=== PATIENT | male | born 2000 | race Caucasian/White ===

== ENCOUNTER 2024-05-24 09:17 | Outpatient (AMB) | payer OTHER, SELFPAY ==
[2024-05-24 09:34] VITALS: BP 116/64; PULSE 60; RESP 16; TEMP 37.3; O2SAT 98; BMI 28.3
--- NOTE | 2024-05-24 09:34 | MHC.PC.OV ---
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 Transferring care from [facility]. Medical records have been requested and have not received. Rn Orthopaedic Required: No Accompanied by: Father Allergies No Known Allergies Allergy (Verified 05/24/24 09:51) Medication List - Last Reconciled 05/24/24 by CLAUDY Santos buspirone mg PO clonidine HCl mg PO divalproex ER 500 mg PO BEDTIME hydroxyzine pamoate mg PO lithium carbonate mg PO loratadine mg PO DAILY melatonin 5 mg PO BEDTIME Tobacco use date assessed: 05/24/24 Dental Screening Dental Screen Date: 05/24/24 Did you have a dental visit in the last 12 months?: No Did you have a dental problem in the last 6 months where you did not have access to dental care?: No Was dental information given to patient?: Patient has dentist 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 HPI Details Patient is a 24-year-old male presenting to establish care, accompanied by father 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 PCP: Security Operations Specialist Last visit: reports a while ago Last PE: a while ago Specialist: reports that he used to see regional business development manager for transitioning-not anymore OBGYN:n/a Past medical history: Autism, schizophrenia, anxiety, reports seeing a psychiatrist ( Overly mateo arredondo) sees a therapist once a week Medications: Family HX: father htn, bipolar Problem: Denies chest pain, shortness of breath, heart palpitation, or dizziness Reports intermittent gas pain in the umbilical area (short-lived) Present denies any urinary symptoms On exam: Bilateral ear cerumen impaction present. Debrox ear drops recommended, we will reassess on next visit. [facility] Medical History (Updated 05/27/24 @ 16:37 by CLAUDY Santos) Anxiety Schizophrenia Autism Family History (Updated 05/27/24 @ 16:13 by CLAUDY Santos) Father Mental health problem Mother No problems noted. Father Bipolar 2 disorder HTN (hypertension) Social History Household Members: Family Both parents involved: No Housing: Condominium Alcohol intake: never Patient Tobacco Use Status: Never used Tobacco e-Cigarette/Vaping Use: Never Used Substance Use Type: Marijuana service: No Cognitive needs: Yes Hearing needs: No Vision needs: Yes Questionnaire PHQ-9 Over the last 2 weeks, how often have you been bothered by any of the following problems? 1. Little interest or pleasure in doing things: not at all 2. Feeling down, depressed, or hopeless: several days 3. Trouble falling or staying asleep, or sleeping too much: more than half the days 4. Feeling tired or having little energy: several days 5. Poor appetite or overeating: nearly every day 6. Feeling bad about yourself - or that you are a failure or have let yourself or your family down: not at all 7. Trouble concentrating on things, such as reading the newspaper or watching television: several days 8. Moving or speaking so slowly that other people could have noticed. Or the opposite - being so fidgety or restless that you have been moving around a lot more than usual: nearly every day 9. Thoughts that you would be better off or of hurting yourself in some way: not at all Total score: 11 Depression Screening Interpretation: Positive Depression Screening Done: Yes 23949 - PHQ-9 Billing: Yes Source: Developed by Drs. Roque Estrella, Mayi Moseley, Homer Barba and colleagues, with an educational maranda from [employer]. Thrive Questionnaire Date Thrive assessed: 05/22/24 I am a: Patient What is your living situation today?: I have a steady place to live Within the past 12 months, did the food you bought not last and you didn't have the money to get more?: I choose not to answer this question Within the past 12 months, did you worry whether your food would run out before you got money to buy more?: Never true Do you have trouble paying for medicines?: No Do you have trouble getting transportation to medical appointments?: No Do you have trouble paying your heating and electricity bill?: I choose not to answer this question Do you have trouble taking care of your child, family member or friend?: I choose not to answer this question Do you have trouble with day-to-day activities such as bathing, preparing meals, shopping, managing finances, etc.?: No Are you currently unemployed and looking for a job?: No Are you interested in more education?: No Please select the resources that you would like help with: None Currently or been in a relationship where the following occur: No concerns reported THRIVE Score: 0 AUDIT C Alcohol Use Questionnaire (AUDIT-C) 1. How often do you have a drink containing alcohol?: Never 2. How many drinks containing alcohol do you have on a typical day when you are drinking?: 1 or 2 3. How often do you have six or more drinks on one occasion?: Never Total Score: 0 MARIA TERESA-7 AMB Questionnaire MARIA TERESA-7 Date MARIA TERESA - 7 assessed: 05/24/24 Feeling nervous, anxious, or on edge: 0 = Not at all Not being able to stop or control worryin = Not at all Worrying too much about different things: 0 = Not at all Trouble relaxin = More than half the days Being so restless that it is hard to sit still: 2 = More than half the days Becoming easily annoyed or irritable: 0 = Not at all Feeling afraid as if something awful might happen: 0 = Not at all Total MARIA TERESA-7 score (0-4 normal; 5-9 mild; 10-14 moderate; 15-21 severe): 4 Source: Developed by Drs. Roque Estrella, Mayi Moseley, Homer Barba and colleagues, with an educational maranda from [employer]. MARIA TERESA-7 Assessment Billing MARIA TERESA-7 Assessment Tool: MARIA TERESA-7 Assessment 84383 Review of Systems Const Details: Denies chills, Denies fatigue, Denies fever(s), Denies headache(s) and Denies weakness HEENT Denies change in vision, Denies dizziness, Denies headache(s), Denies hearing loss, Denies nasal congestion, Denies sinus pain, Denies sinus pressure and Denies sore throat Card Denies chest pain, Denies lightheadedness, Denies dyspnea and Denies other (palpitations) Resp Denies cough, Denies dyspnea and Denies wheezing GI The reports gas like pain in the epigastric region intermittently (short-lived) Denies melena, Denies hematochezia, Denies change in bowel habits, Denies dyspepsia and Denies nausea Denies hematuria and Denies dysuria Musc Denies abnormal gait, Denies myalgias, Denies arthralgias, Denies numbness and Denies tingling Skin/Breast Denies rash, Denies unusual bruising and Denies wounds Neuro Denies abnormal gait, Denies dizziness, Denies headache(s), Denies memory loss, Denies numbness, Denies Sensory deficit (Neuro), Denies tingling and Denies weakness Psych reports anxiety, Denies depression and Denies memory loss Endo Denies cold intolerance, Denies fatigue, Denies heat intolerance, Denies polydipsia and Denies polyuria Gary/Lymph Denies easy bleeding and Denies easy bruising Aller/Immun Denies wheezing Physical exam (Primary Care) Vital Signs: Last Vital Signs Temp 99.1 F 05/24/24 09:34 Pulse 60 05/24/24 09:34 Resp 16 05/24/24 09:34 BP 116/64 05/24/24 09:34 Pulse Ox 98 05/24/24 09:34 Oxygen Delivery Method Room Air 05/24/24 09:34 BMI result Body Mass Index 28.3 Tobacco/Smoking Status: Tobacco use Status Tobacco use date assessed 05/24/24 05/24/24 09:50 Patient Tobacco Use Status Never used Tobacco 05/24/24 09:50 e-Cigarette/Vaping Use Never Used 05/24/24 09:50 PHQ-9: PHQ-9 Score PHQ-9: Total score 11 05/24/24 14:22 Depression Screening Interpretation: Positive Thrive Assessment: Date of Thrive Assessment Date Thrive assessed 05/22/24 05/24/24 09:39 Currently or been in a relationship where the following occur: No concerns reported Const Other: General: no acute distress, well developed, alert and awake Nutritional Appearance: well nourished Orientation/consciousness: patient oriented x3 HENMT Head: Yes normocephalic and Yes atraumatic Ears: hearing grossly normal bilaterally and TM's normal bilaterally Detail:Bilateral ear impaction present with light brown cerumen General nose exam: Normal external nose present and Normal nares present Mouth: Normal oral and palatal mucosa present and moist mucous membranes Teeth and gingiva: dentition normal Throat: Yes oropharynx normal Eyes Pupils: Equal, round and reactive pupils present and Pupil accommodation reflex normal EOM: EOMs intact bilaterally Neck Neck: Yes normal visual inspection, Yes no lymphadenopathy and Yes trachea midline Thyroid: Thyroid normal Carotids: no bruits Lymphatic: no lymphadenopathy noted Chest Chest palpation & inspection: normal inspection of the chest Resp Effort & Inspection: normal respiratory effort Auscultation: clear to auscultation bilaterally Cardio Rate: regular rate Rhythm: regular rhythm Heart sounds: S1 normal heart sound present, S2 normal heart sound present, no gallops, no murmurs and no rubs GI Palpation (GI): Abdomen is soft and nontender Auscultation: normal bowel sounds General: Yes no CVA tenderness Back/Spine/Pelvis Back: no CVA tenderness Skin General: warm and dry. Normal skin color. Normal skin turgor Lesions: no lesions Wounds: no wounds Nails: normal Neuro General: patient oriented x3, gait normal Cranial nerves: Yes Equal, round and reactive pupils present Cognition (Neuro): answer questions intermittently, but sometimes does not respond to question or slow to respond Gait exam (Neuro): Normal gait present Motor exam (neuro): 5/5 motor strength present throughout Sensory Exam: No Sensory deficit (Neuro) Extrem General: Yes normal to inspection, No edema and No calf tenderness Psych Appearance: grossly normal Affect: normal affect Attitude: cooperative Thought process: Normal thought process present Coding Level of Care Code New Pt Level 4 (33754) Diagnoses Autism F84.0 Schizophrenia, unspecified type F20.9 Schizophrenia type: unspecified Anxiety F41.9 Bilateral impacted cerumen H61.23 Laterality: bilateral Additional Codes MARIA TERESA-7 Assessment Billing - MARIA TERESA-7 Assessment Tool: MARIA TERESA-7 Assessment 28353 ([id number]) PHQ-9 - 54076 - PHQ-9 Billing: Yes ([id number]) Time Spent (min) 39 Assessment & Plan Assessment & Plan (1) Autism: Code(s): F84.0 - Autistic disorder Category: Medical Plan: Reports-unclear severity. The patient is slightly withdrawn and is answering questions on and off. His father intermittently responded for him. (2) Schizophrenia: Code(s): F20.9 - Schizophrenia, unspecified Category: Medical Qualifiers: Schizophrenia type: unspecified Qualified Code(s): F20.9 - Schizophrenia, unspecified Plan: He reports history and that he is seeing a psychiatrist ( Scott at [facility]); he is also seeing a therapist once a week through [facility] Reports currently being on Divalproex ER 500 mg at bedtime, lithium carbonate (3) Anxiety: Code(s): F41.9 - Anxiety disorder, unspecified Category: Medical Plan: Reports seeing a therapist weekly Reports that he is currently on buspirone 15 mg, clonidine 0.1 mg, and hydroxyzine pamoate 25 mg Denies si/hi follow up with psychiatry as scheduled (4) Impacted cerumen, unspecified ear: Code(s): H61.20 - Impacted cerumen, unspecified ear Category: Medical Qualifiers: Laterality: bilateral Qualified Code(s): H61.23 - Impacted cerumen, bilateral Plan: Bilateral ear impaction, recommended debrox ear drop with re-assess on follow up appt Orders: Orders Complete Blood Count Auto Diff 05/24/24 Z00.00 - Encounter for general adult medical examination without abnormal findings Vitamin D 25-OH Total 05/24/24 Z00.00 - Encounter for general adult medical examination without abnormal findings TSH reflex Free T4 05/24/24 Z00.00 - Encounter for general adult medical examination without abnormal findings UA CC w/rflx Micro + Cult 05/24/24 Z00.00 - Encounter for general adult medical examination without abnormal findings Glucose Fasting 05/24/24 Z00.00 - Encounter for general adult medical examination without abnormal findings Comprehensive Brule. Panel Fast 05/24/24 Z00.00 - Encounter for general adult medical examination without abnormal findings Lipid Panel 05/24/24 Z00.00 - Encounter for general adult medical examination without abnormal findings
--- OUTSIDE RECORDS SUMMARY | 2024-05-24 10:20 | XMS_ITS | Clinical Summary ---
Author Organization [facility] Address [address] [place] [id number] Phone Care Team Providers Care Chronometer Assembler Name Role Phone Unavailable Primary Care Provider Unavailabl e Allergies Active Allergy Reactions Criticality Noted Date Comments Risperidone Hives 10/10/2018 Medications divalproex (DEPAKOTE) 250 MG EC tablet Take by mouth. 09/19/2013 Active divalproex 250 MG 24 hr tablet 11 09/08/2018 Act honorio divalproex 500 MG 24 hr tablet 11 09/08/2018 Act honorio melatonin tablet 11 09/08/2018 Ac tive QUEtiapine (SEROQUEL) 50 MG tablet Take by mouth. 11/08/2014 Active QUEtiapine 100 MG tablet 11 09/08/2018 Active guanFACINE HCl ER (INTUNIV) 2 MG tablet sustained-releas e 24 hour Take by mouth. 09/19/2013 Active guanFACINE 2 MG tablet 11 09/08/2018 Active Active Problems Problem Noted Date Diagnosed Date ADHD (attention deficit hyperactivity disorder) Overview (10/10/2018): Dr. Chin prescribes medications. Assessment & Plan (12/13/2019 11:06 AM EDT): Dr. Chin prescribes meds - encouraged to continue follow up as directed with Dr. Chin. Autism Overview (10/10/2018): Dr. Chin prescribes medications. Mood disorder Overview (10/10/2018): Dr. Chin prescribes medications. Immunizations Immunization Administration Dates Next Due DTaP 04/11/2007, 4,2002, 003,2002 Hep A, ped/adol 12/13/2019,10/10/2018 Hep B, ped/adol 2002,2002,2002 Hib (HbOC) 08/09/2003, 3,2002, 003 IPV 04/11/2007, 4,2002, 003 Influenza Split 02/09/2012, 5,01/08/2004, 003 MMR 03/28/2007,08/09/2003 Meningococcal B Trumenba 12/13/2019 Meningococcal Conj (Menactra) MCV4P 10/10/2018,0 11/08/2014 Pneumococcal Conjugate 04/03/2003,2002,2002, 003 Tdap 11/08/2014 Varicella 03/28/2007,04/03/2003 Family History Relation Name Status Comments Father Alive Father: Alive a nd well Mother Alive Mother: Bipolar disorder Social History Tobacco Use Types Packs/Day Years Used Date Smoking Tobacco: Never Comments:Tried once Alcohol Use Standard Drinks/Week Comments Yes 0 (1 standard drink = 0.6 oz pur e alcohol) just once per patient. Hunger/Food Answer Date Recorded In the last 12 months, did y ou or your family ever eat less than you felt you should because there wasn't enough money for food? No 12/13/2019 Stable Housing Answer Date Recorded Are you worried that in the next 2 months you may not have stable housing? No 12/13/2019 Transportation Concerns Answer Date Rec orded In the last 12 months, have you or your family ever had to go without healthcare because you didn't have a way to get there? No 12/13/2019 Hazards in Home Answer Date Recorded Think about the place you li ve. Do you have problems with any of the following? Pests (mice or roaches), mold, no/not working smoke detectors, water leaks, no window guards. No 2019 Financing Utilities Answer Date Recorde d In the last 12 months, has t he electric, gas, oil, or water company threatened to shut off your services in your home? No 12/13/2019 Safety at Home Answer Date Recorded Are you or your family worried about feeling saf e in your home? No 12/13/2019 Outside Support Answer Date Recorded Do you feel that you need mo re support from other people or programs to help you care for yourself or your family? No 12/13/2019 Understanding Health Concerns Answer Da te Recorded Do you need help understandi ng your or your child's healthcare needs (diagnosis, medications, plan, etc.)? No 12/13/2019 Financing Health Concerns Answer Date R ecorded In the last 12 months, was t here a time when your child needed to see a doctor or get medications or supplies but could not because of cost? No 12/13/2019 Missing School or Work Answer Date Oc rded Did you or your child miss s chool or work because of a health problem that could have been avoided? No 12/13/2019 Sex and Gender Information Value Date Recorded Sex Assigned at Not on file Legal Sex Male 4:58 PM EDT Gender Identity Not on file Sexual Orientation Not on file Last Filed Vital Signs Vital Sign Reading Time Taken Comments Blood Pressure 120/76 12/13/2019 10:45 AM EDT Pulse 86 12/13/2019 10:45 AM EDT Temperature 36.8 ??C (98.3 ??F) 12/13/2019 10:45 AM E DT Respiratory Rate - - Oxygen Saturation 98% 12/13/2019 10:45 AM EDT Inhaled Oxygen Concentration - - Weight 72.3 kg (159 lb 6.3 oz) 12/13/2019 10:45 AM EDT Height 162 cm (5' 3.78 ) 12/13/2019 10:45 AM EDT Body Mass Index 27.55 12/13/2019 10:45 AM EDT Plan of Treatment Health Maintenance Due Date Last Done Comments Glucose/HbA1C 10/10/2018 LDL-C/Cholesterol 10/10/2018 Men B Vaccine (2 of 2 - Trum enba SCDM 2-dose series) 06/11/2020 12/13/2019 Influenza Vaccines (#1) 2023 01/22/20, 12/31/2019, 02/09/2012, Additional history exists COVID-19 Vaccine ( - 2023-2 5 season) 2023 DTaP,Tdap,and Td Vaccines (7 - Td or Tdap) 11/08/2024 11/08/2014, 04/11/2007, 11/04/2003, Additional history exists Hepatitis B Vaccines Completed 2002, 2002, 2002 Pneumococcal Vaccine Completed 04/03/2003, 2002, 2002, Additional history exists HIB Vaccines Completed 08/09/2003, 07/20, 2002, Additional history exists MMR Vaccines Completed 03/28/2007, 08/09/2003 Varicella Vaccines Completed 03/28/2007, 04/03/2003 IPV Vaccines Completed 04/11/2007, 10/19, 08/09/2003, Additional history exists HPV Vaccines Completed 09/14/2017, 06/29/2016 Meningococcal Vaccine Completed 10/10/2018 , 11/08/2014, 11/09/2003 Hepatitis A Vaccines Completed 12/13/2019, 10/11/19 19 Insurance [facility] [place] [place] [id number] * Guarantor: BE[employer] Account Type Relation to Patient Date of Phone Billing Address [facility] [address] [place] [address]
--- OUTSIDE RECORDS SUMMARY | 2024-05-24 10:20 | XMS_ITS | Encounter Summary ---
Author Organization [facility] Address [address] [place] [address] Phone Care Team Providers Care Assistant Track Coach Name Role Phone Floresita Schmidt MD Primary Care Provider [phone] Encounter Details Date Type Department Care Team (Late st Contact Info) Description 11/25/2009 Documentation [facility] [place] [address] [place] [address] Family Medicine, Physician [address] [place] [address] Social History Tobacco Use Types Packs/Day Years Used Date Smoking Tobacco: Never Assessed Sex and Gender Information Value Date Recorded Sex Assigned at Not on file Legal Sex Male 4:58 PM EDT Gender Identity Not on file Sexual Orientation Not on file documented as of this encounter Plan of Treatment Not on file documented as of this encounter Visit Diagnoses Not on filedocumented in this encounter Care Teams Assistant Track Coach Relationship Specialty Start Date End Date Floresita Schmidt MD [address] [place] [address] PCP - General Pediatrics 10/10/18 03/15/22 documented as of this encounter
--- OUTSIDE RECORDS SUMMARY | 2024-05-24 10:20 | XMS_ITS | Encounter Summary ---
Author Organization [facility] Address [address] [place] [address] Phone Care Team Providers Care Waiter/Waitress Economy Class Name Role Phone Floresita Schmidt MD Primary Care Provider [phone] Encounter Details Date Type Department Care Team (Late st Contact Info) Description 08/09/[address] [facility] [place] [address] [place] [address] Family Medicine, Physician [address] [place] [address] Social History Tobacco Use Types Packs/Day Years [...] on filedocumented in this encounter Care Teams Waiter/Waitress Economy Class Relationship Specialty Start Date End Date Floresita Schmidt MD [address] [place] [address] PCP - General Pediatrics 10/10/18 03/15/22 documented as of this encounter
--- OUTSIDE RECORDS SUMMARY | 2024-05-24 10:20 | XMS_ITS | Encounter Summary ---
Author Organization [facility] Address [address] [place] [address] Phone Care Team Providers Care Pourer Name Role Phone Floresita Schmidt MD Primary Care Provider [phone] Encounter Details Date Type Department Care Team (Late st Contact Info) Description 11/25/2009 Documentation [facility] [place] Medicine [address] [place] [address] Family Medicine, Physician [address] [place] [address] Social History Tobacco Use Types Packs/Day Years [...] on filedocumented in this encounter Care Teams Pourer Relationship Specialty Start Date End Date Floresita Schmidt MD [address] [place] [address] PCP - General Pediatrics 10/10/18 03/15/22 documented as of this encounter
--- OUTSIDE RECORDS SUMMARY | 2024-05-24 10:20 | XMS_ITS | Encounter Summary ---
Author Organization [facility] Address [address] [place] [address] Phone Care Team Providers Care Wind Science And Planning Name Role Phone Floresita Schmidt MD Primary Care Provider [phone] Encounter Details Date Type Department Care Team (Late st Contact Info) Description 05/29/2013 Documentation [facility] [place] [address] [place] [address] Family Medicine, Physician [address] [place] [address] Social History Tobacco Use Types Packs/Day Years [...] on filedocumented in this encounter Care Teams Wind Science And Planning Relationship Specialty Start Date End Date Floresita Schmidt MD [address] [place] [address] PCP - General Pediatrics 10/10/18 03/15/22 documented as of this encounter
--- OUTSIDE RECORDS SUMMARY | 2024-05-24 10:21 | XMS_ITS | Encounter Summary ---
Author Organization [facility] Address [address] [place] [address] Phone Care Team Providers Care Lumber Marker Name Role Phone Floresita Schmidt MD Primary Care Provider Encounter Details Date Type Department Care Team (Late st Contact Info) Description 11/13/2013 Documentation [facility] [place] [address] [place] [address] Family Medicine, Physician [address] [place] [address] Social History Tobacco Use Types Packs/Day Years [...] on filedocumented in this encounter Care Teams Lumber Marker Relationship Specialty Start Date End Date Floresita Schmidt MD [address] [place] [address] PCP - General Pediatrics 10/10/18 03/15/22 documented as of this encounter
--- OUTSIDE RECORDS SUMMARY | 2024-05-24 10:21 | XMS_ITS | Encounter Summary ---
Author Organization [facility] Address [address] [place] [address] Phone Care Team Providers Care Compressor Station Engineer Chief Name Role Phone Floresita Schmidt MD Primary Care Provider [phone] Encounter Details Date Type Department Care Team (Late st Contact Info) Description 11/04/2016 Conversion Encounter [facility] - [address] [address] Social History Tobacco Use Types Packs/Day Years [...] on filedocumented in this encounter Care Teams Compressor Station Engineer Chief Relationship Specialty Start Date End Date Floresita Schmidt MD [address] [place] [address] [place] [address] PCP - General Pediatrics 10/10/18 03/15/22 documented as of this encounter
== END 2024-05-24 10:22 | disposition home or self-care (01) ==
DX: F84.0 Autistic disorder (principal); F20.9 Schizophrenia, unspecified; F41.9 Anxiety disorder, unspecified; H61.23 Impacted cerumen, bilateral

== ENCOUNTER → 2024-05-24 09:17 | Outpatient (BNVA) | payer OTHER, SELFPAY | DX: F84.0 Autistic disorder (principal); F20.9 Schizophrenia, unspecified; F41.9 Anxiety disorder, unspecified; H61.23 Impacted cerumen, bilateral | CPT/HCPCS: 96127; 99202 ==

== ENCOUNTER 2024-06-12 10:49 | Outpatient (REF) | payer OTHER, SELFPAY ==
[2024-06-12 11:06] LABS: MANUAL DIFF FLAG NO
[2024-06-12 11:52] LABS: Basophils Absolute Auto 0.1 X10*3/uL (0.0-0.2); Basophils Percent Auto 0.5 % (0-2); Eosinophils Absolute Auto 0.2 X10*3/uL (0.0-0.4); Hematocrit 48.7 % (42.0-52.0); Hemoglobin 15.8 g/dl (14.0-18.0); Imm Gran Abs Auto 0.03 X10*3/uL (0.00-0.03); Imm Gran Pct Auto 0.3 % (0.0-0.4); Lymphocytes Absolute Auto 2.2 X10*3/uL (1.2-4.9); Lymphocytes Percent Auto 23.5 % (20-40); Mean Corpuscular HGB Conc 32.4 g/dl (31.0-36.0); Mean Corpuscular Hemoglobin 28.7 pg (27.0-33.0); Mean Corpuscular Volume 88.4 fL (80.0-98.0); Mean Platelet Volume 11.5 fL (9.4-12.4); Monocytes Absolute Auto 0.5 X10*3/uL (0.1-1.2); Neutrophils Absolute Auto 6.3 x10*3/uL (2.0-8.3); Neutrophils Percent Auto 68.7 % (45-73); Platelet Count 240 X10*3/uL (160-400); Red Blood Count 5.51 X10*6/uL (4.60-5.80); Red Cell Distribution Width 14.4 % (11.0-16.0); White Blood Count 9.2 X10*3/uL (4.8-10.8)
[2024-06-12 12:13] LABS: Anion Gap 10 (12-20)
[2024-06-12 12:16] LABS: Alanine Aminotransferase 22 U/L (0-40); Albumin Level 4.8 g/dL (3.5-5.0); Aspartate Amino Transferase 32 U/L (5-37); Bilirubin Total 1.2 mg/dL (0.0-1.0); Blood Urea Nitrogen 8 mg/dL (9-16); Calcium 10.1 mg/dL (8.4-10.2); Carbon Dioxide 28 mmol/L (22-29); Chloride 111 mmol/L (96-108); Cholesterol 112 mg/dL (<200); Estimated Glomerular Filt Rate > 60; Glucose Fasting 85 mg/dL (60-99); HDL Cholesterol 42 mg/dL (>40); LDL Cholesterol Calculated 52 mg/dL (<100); Potassium 4.3 mmol/L (3.3-5.1); Sodium 145 mmol/L (135-145); Triglycerides 93 mg/dL (<150)
[2024-06-12 12:40] LABS: TSH reflex Free T4 1.33 uIU/mL (0.32-4.0); Vitamin D 25-OH Total 14.6 ng/mL (>30)
[2024-06-12 12:46] LABS: Alkaline Phosphatase 74 U/L (39-117)
== END 2024-06-12 10:50 | disposition home or self-care (01) ==
LOC: HO.LAB 10:49
DX: Z00.00 Encounter for general adult medical examination without abnormal findings (principal); Z13.220 Encounter for screening for lipoid disorders; Z13.29 Encounter for screening for other suspected endocrine disorder; Z13.228 Encounter for screening for other metabolic disorders
CPT/HCPCS: 36415; 80053; 80061; 82306; 84443; 85025

== ENCOUNTER 2024-06-26 09:16 | Outpatient (AMB) | payer OTHER, SELFPAY ==
[2024-06-26 09:36] VITALS: BP 112/84; PULSE 75; RESP 18; TEMP 36.9; O2SAT 99; BMI 29.0
--- NOTE | 2024-06-26 09:36 | A.OFFPC_ITS ---
Vital Signs 06/26/24 09:36 Height 5 ft 3.78 in Weight 167 lb 9.6 oz BMI 29.0 BP 112/84 Blood Pressure Location Lt brachial Position Sitting Respiration 18 Pulse 75 Pulse Source Pulse Oximeter Temp 98.5 F Temp Source Oral Pulse Oximetry (%) 99 Oxygen Delivery Method Room Air Intake Visit Reasons: Annual Exam Coding Assistant Required: No Accompanied by: Uncle Allergies No Known Allergies Allergy (Verified 06/26/24 10:09) Medication List - Last Reconciled 06/26/24 by CLAUDY Santos benztropine 0.5 mg PO DAILY buspirone mg PO TID clonidine HCl mg PO hydroxyzine pamoate mg PO lithium carbonate mg PO melatonin 5 mg PO BEDTIME paliperidone palmitate (Invega Sustenna) mg IM Tobacco use date assessed: 06/26/24 Dental Screening Dental Screen Date: 06/26/24 Did you have a dental visit in the last 12 months?: No Did you have a dental problem in the last 6 months where you did not have access to dental care?: No Was dental information given to patient?: No HPI Annual Exam HPI Details Patient is a 24-year-old male with autism, accompanied by uncle for his annual physical Dentist: about a year and half Eye: working on getting appt for new glasses Snellen: Right: Left: Corrected vision: glasses STI screening:n/a Colonoscopy:n/a Pap Smer: PHQ-9: Flu:did was not taken this year COVID: has not have any of the covid vaccines so far Tdap: The patient going to get the vaccine in office, but he had to leave because his ride arrived Diet:regular Exercise: no [facility] Medical History (Updated 05/27/24 @ 16:37 by CLAUDY Santos) Anxiety Schizophrenia Autism Surgical History No pertinent past surgical history Family History Father Mental health problem Mother No problems noted. Father Bipolar 2 disorder HTN (hypertension) Social History Household Members: Family Both parents involved: No Housing: Condominium Alcohol intake: never Patient Tobacco Use Status: Never used Tobacco e-Cigarette/Vaping Use: Never Used Substance Use Type: Marijuana service: No Cognitive needs: Yes Hearing needs: No Vision needs: Yes Questionnaire PHQ-9 Over the last 2 weeks, how often have you been bothered by any of the following problems? 1. Little interest or pleasure in doing things: nearly every day 2. Feeling down, depressed, or hopeless: not at all 3. Trouble falling or staying asleep, or sleeping too much: nearly every day 4. Feeling tired or having little energy: nearly every day 5. Poor appetite or overeating: nearly every day 6. Feeling bad about yourself - or that you are a failure or have let yourself or your family down: not at all 7. Trouble concentrating on things, such as reading the newspaper or watching television: not at all 8. Moving or speaking so slowly that other people could have noticed. Or the opposite - being so fidgety or restless that you have been moving around a lot more than usual: not at all 9. Thoughts that you would be better off or of hurting yourself in some way: not at all Total score: 12 Depression Screening Interpretation: Positive Depression Screening Done: Yes Source: Developed by Drs. Roque Estrella, Mayi Moseley, Homer Barba and colleagues, with an educational maranda from [employer]. Thrive Questionnaire Date Thrive assessed: 06/26/24 I am a: Patient What is your living situation today?: I have a steady place to live Within the past 12 months, did the food you bought not last and you didn't have the money to get more?: I choose not to answer this question Within the past 12 months, did you worry whether your food would run out before you got money to buy more?: Never true Do you have trouble paying for medicines?: No Do you have trouble getting transportation to medical appointments?: No Do you have trouble paying your heating and electricity bill?: I choose not to answer this question Do you have trouble taking care of your child, family member or friend?: I choose not to answer this question Do you have trouble with day-to-day activities such as bathing, preparing meals, shopping, managing finances, etc.?: No Are you currently unemployed and looking for a job?: No Are you interested in more education?: No Please select the resources that you would like help with: None Currently or been in a relationship where the following occur: No concerns reported THRIVE Score: 0 AUDIT C Alcohol Use Questionnaire (AUDIT-C) 1. How often do you have a drink containing alcohol?: Never 3. How often do you have six or more drinks on one occasion?: Never Total Score: 0 MARIA TERESA-7 AMB Questionnaire MARIA TERESA-7 Date MARIA TERESA - 7 assessed: 06/26/24 Feeling nervous, anxious, or on edge: 0 = Not at all Not being able to stop or control worryin = Not at all Worrying too much about different things: 1 = Several days Trouble relaxin = More than half the days Being so restless that it is hard to sit still: 2 = More than half the days Becoming easily annoyed or irritable: 0 = Not at all Feeling afraid as if something awful might happen: 0 = Not at all Total MARIA TERESA-7 score (0-4 normal; 5-9 mild; 10-14 moderate; 15-21 severe): 5 Source: Developed by Drs. Roque Estrella, Mayi Moseley, Homer Barba and colleagues, with an educational maranda from [employer]. Review of Systems Const Denies headache(s) Eyes Denies loss of vision ENT Denies vertigo, Denies dizziness, Denies headache(s) and Denies sore throat Card Denies chest pain, Denies leg edema and Denies lightheadedness Resp Denies cough, Denies hemoptysis and Denies wheezing GI Denies abdominal pain, Denies melena, Denies constipation, Denies diarrhea and Denies vomiting Denies dysuria, Denies urinary frequency and Denies urinary urgency Musc Denies arthralgias, Denies joint swelling, Denies numbness and Denies tingling Neuro Denies Abnormal speech present, Denies behavioral changes, Denies vertigo, Denies dizziness, Denies headache(s), Denies loss of vision, Denies memory loss, Denies numbness and Denies tingling Psych Denies anxiety, Denies behavioral changes, Denies depression, Denies memory loss and Denies panic attacks Gary/Lymph Denies easy bleeding and Denies easy bruising Aller/Immun Denies wheezing Physical exam (Primary Care) Vital Signs: Last Vital Signs Temp 98.5 F 06/26/24 09:36 Pulse 75 06/26/24 09:36 Resp 18 06/26/24 09:36 BP 112/84 06/26/24 09:36 Pulse Ox 99 06/26/24 09:36 Oxygen Delivery Method Room Air 06/26/24 09:36 BMI result Body Mass Index 29.0 Tobacco/Smoking Status: Tobacco use Status Tobacco use date assessed 06/26/24 06/26/24 09:40 Patient Tobacco Use Status Never used Tobacco 06/26/24 09:40 e-Cigarette/Vaping Use Never Used 06/26/24 09:40 PHQ-9: PHQ-9 Score PHQ-9: Total score 12 06/26/24 10:15 Depression Screening Interpretation: Positive Thrive Assessment: Date of Thrive Assessment Date Thrive assessed 05/22/24 06/26/24 11:24 Currently or been in a relationship where the following occur: No concerns reported Const General: healthy appearing, no acute distress, alert and awake Nutritional Appearance: well nourished Orientation/consciousness: oriented to person, oriented to place and oriented to time HENMT Ears: Abnormal EAC present cerumen impaction bilateral General nose exam: Normal nasal mucous membranes and turbinates present Mouth: oropharynx normal Throat: Yes posterior oropharynx normal Eyes Conjunctivae: conjunctivae normal Sclerae: sclerae normal Pupils: Equal, round and reactive pupils present Neck Neck: Yes no lymphadenopathy and Yes no JVD Thyroid: Thyroid normal Carotids: no bruits Resp Effort & Inspection: normal respiratory effort and not tachypneic Auscultation: no crackles, no rales, no rhonchi and no wheezes Cardio Rate: regular rate Rhythm: regular rhythm Heart sounds: no murmurs and normal S1 and S2 GI Palpation (GI): Soft to palpation, nontender, no hepatomegaly and no splenomegaly Auscultation: normal bowel sounds Skin General skin exam: no rashes or lesions noted and dry skin Neuro General: oriented to person, oriented to place and oriented to time Cranial nerves: Yes Equal, round and reactive pupils present Speech: No Abnormal speech present Gait exam (Neuro): Normal gait present Motor exam (neuro): no tremor noted Extrem Right upper extremity: full ROM Left upper extremity: full ROM Right lower extremity: full ROM; no edema Left lower extremity: full ROM; no edema Psych Mental Status: mental status grossly normal Speech and movement: Normal speech and movement present Affect: normal affect Attitude: cooperative Thought process: Normal thought process present Results Reviewed Results Reviewed: Laboratory Tests 06/12/24 11:05 WBC 9.2 RBC 5.51 Hgb 15.8 Hct 48.7 MCV 88.4 MCH 28.7 Plt Count 240 Sodium 145 Potassium 4.3 Chloride 111 H Carbon Dioxide 28 Anion Gap 10 L BUN 8 L Creatinine 0.91 Estimated GFR > 60 Fasting Glucose 85 Calcium 10.1 Total Bilirubin 1.2 H AST 32 ALT 22 Alkaline Phosphatase 74 Total Protein 7.0 Albumin 4.8 Triglycerides 93 LDL Cholesterol, Calc 52 HDL Cholesterol 42 25-OH Vitamin D Total 14.6 L TSH 1.33 Coding Level of Care Code Est Pt Prev Care 18-39y(24921) Diagnoses Annual physical exam Z00.00 Autism F84.0 Schizophrenia, unspecified type F20.9 Schizophrenia type: unspecified Anxiety F41.9 Bilateral impacted cerumen H61.23 Laterality: bilateral Time Spent (min) 39 Assessment & Plan Assessment & Plan (1) Annual physical exam: Code(s): Z00.00 - Encounter for general adult medical examination without abnormal findings Category: Medical Plan: Preventative guidelines and recent labs reviewed with the patient and uncle. The patient is due for his tetanus injection, but his ride arraived and he had to leave. Will follow on the patient next visit (2) Autism: Code(s): F84.0 - Autistic disorder Category: Medical Plan: Reports-unclear severity. The patient is slightly withdrawn and is answering questions on and off. The patient uncle answered most of the question. (3) Schizophrenia: Code(s): F20.9 - Schizophrenia, unspecified Category: Medical Qualifiers: Schizophrenia type: unspecified Qualified Code(s): F20.9 - Schizophrenia, unspecified Plan: He reports history and that he is seeing a psychiatrist ( Scott at [facility]); he is also seeing a therapist once a week through [facility] He is currently on clonidine 0.1 HCI, lithium carbonate 300 mg, hydroxyzine 25 mg, paliperidone 156/mg/mL IM, and benztropine 0.5mg Follow up with Psychiatry as scheduled (4) Anxiety: Code(s): F41.9 - Anxiety disorder, unspecified Category: Medical Plan: Reports seeing a therapist weekly Reports that he is currently on buspirone 15 mg, clonidine 0.1 mg, and hydroxy zine pamoate 25 mg Denies si/hi follow up with psychiatry as scheduled (5) Impacted cerumen, unspecified ear: Code(s): H61.20 - Impacted cerumen, unspecified ear Category: Medical Qualifiers: Laterality: bilateral Qualified Code(s): H61.23 - Impacted cerumen, bilateral Plan: Bilateral ear impaction debrox ear drops ordered. Instructed the patient uncle on the process on using the debrox ear drops. Orders: Orders Comprehensive [place]. Panel Fast 1 Year F20.9 - Schizophrenia, unspecified, F41.9 - Anxiety disorder, unspecified, F84.0 - Autistic disorder, Z00.00 - Encounter for general adult medical examination without abnormal findings Lipid Panel 1 Year F20.9 - Schizophrenia, unspecified, F41.9 - Anxiety disorder, unspecified, F84.0 - Autistic disorder, Z00.00 - Encounter for general adult medical examination without abnormal findings Vitamin D 25-OH Total 1 Year F20.9 - Schizophrenia, unspecified, F41.9 - Anxiety disorder, unspecified, F84.0 - Autistic disorder, Z00.00 - Encounter for general adult medical examination without abnormal findings TSH reflex Free T4 1 Year F20.9 - Schizophrenia, unspecified, F41.9 - Anxiety disorder, unspecified, F84.0 - Autistic disorder, Z00.00 - Encounter for general adult medical examination without abnormal findings Glucose Fasting 1 Year F20.9 - Schizophrenia, unspecified, F41.9 - Anxiety disorder, unspecified, F84.0 - Autistic disorder, Z00.00 - Encounter for general adult medical examination without abnormal findings Complete Blood Count Auto Diff 1 Year F20.9 - Schizophrenia, unspecified, F41.9 - Anxiety disorder, unspecified, F84.0 - Autistic disorder, Z00.00 - Encounter for general adult medical examination without abnormal findings UA CC w/rflx Micro + Cult 1 Year F20.9 - Schizophrenia, unspecified, F41.9 - Anxiety disorder, unspecified, F84.0 - Autistic disorder, Z00.00 - Encounter for general adult medical examination without abnormal findings Medications: New carbamide peroxide 6.5% (Debrox) 5 drps otic (ears) Q12H 4 days 15 mL 0RF H61.23 - Impacted cerumen, bilateral cholecalciferol (vitamin D3) 50 mcg PO DAILY 30 days 30 caps 3RF
--- OUTSIDE RECORDS SUMMARY | 2024-06-26 10:14 | XMS_ITS | Encounter Summary ---
Author Organization [facility] Address [address] [place] [address] Phone Care Team Providers Care Forensic Locksmith Name Role Phone Floresita Schmidt MD Primary Care Provider [phone] Encounter Details Date Type Department Care Team (Late st Contact Info) Description 11/25/2009 Documentation [facility] [place] [address] [place] [address] Family Medicine, Physician [address] [place] [address] Social History Tobacco Use Types Packs/Day Years [...] on filedocumented in this encounter Care Teams Forensic Locksmith Relationship Specialty Start Date End Date Floresita Schmidt MD [address] [place] [address] PCP - General Pediatrics 10/10/18 03/15/22 documented as of this encounter
--- OUTSIDE RECORDS SUMMARY | 2024-06-26 10:15 | XMS_ITS | Encounter Summary ---
Author Organization [facility] Address [address] [place] [address] Phone Care Team Providers Care Bi Developer Name Role Phone Floresita Schmidt MD Primary Care Provider Encounter Details Date Type Department Care Team (Late st Contact Info) Description 11/13/2013 [place]ation [facility] [place] [address] [place] [address] Family Medicine, Physician [address] [place] [address] Social History Tobacco Use Types Packs/Day Years [...] on filedocumented in this encounter Care Teams Bi Developer Relationship Specialty Start Date End Date Floresita Schmidt MD [address] [place] [address] PCP - General Pediatrics 10/10/18 03/15/22 documented as of this encounter
--- OUTSIDE RECORDS SUMMARY | 2024-06-26 10:15 | XMS_ITS | Clinical Summary ---
Author Organization [facility] Address [address] [place] [id number] Phone Care Team Providers Care Road Maker Name Role Phone Unavailable Primary Care Provider [...] A Vaccines Completed 12/13/2019, 10/11/19 19 Insurance [facility] MEDICAID [place] [id number] * Guarantor: BEATA Hig[employer] Account Type Relation to Patient Date of Phone Billing Address [facility] Other [address] [place] [address]
--- OUTSIDE RECORDS SUMMARY | 2024-06-26 10:15 | XMS_ITS | Encounter Summary ---
Author Organization [facility] Address [address] [place] [address] Phone Care Team Providers Care Plate Colorer Name Role Phone Floresita Schmidt MD Primary Care Provider [phone] Encounter Details Date Type Department Care Team (Late st Contact Info) Description 11/25/2009 Documentation [facility] [place] Medicine [address] [place] [address] Family Medicine, Physician [address] [place] [address] Social History Tobacco Use Types Packs/Day Years [...] on filedocumented in this encounter Care Teams Plate Colorer Relationship Specialty Start Date End Date Floresita Schmidt MD [address] [place] [address] PCP - General Pediatrics 10/10/18 03/15/22 documented as of this encounter
--- OUTSIDE RECORDS SUMMARY | 2024-06-26 10:15 | XMS_ITS | Encounter Summary ---
Author Organization [facility] Address [address] [place] [address] Phone Care Team Providers Care Files Supervisor Name Role Phone Floresita Schmidt MD Primary Care Provider [phone] Encounter Details Date Type Department Care Team (Late st Contact Info) Description 05/29/2013 [place] [facility] [place] [address] [place] [address] Family Medicine, Physician [address] [place] [address] Social History Tobacco Use Types Packs/Day Years [...] on filedocumented in this encounter Care Teams Files Supervisor Relationship Specialty Start Date End Date Floresita Schmidt MD [address] [place] [address] PCP - General Pediatrics 10/10/18 03/15/22 documented as of this encounter
--- OUTSIDE RECORDS SUMMARY | 2024-06-26 10:15 | XMS_ITS | Encounter Summary ---
Author Organization [facility] Address [address] [place] [address] Phone Care Team Providers Care Installation Drafter Name Role Phone Floresita Schmidt MD Primary Care Provider [phone] Encounter Details Date Type Department Care Team (Late st Contact Info) Description 08/09/[address] [facility] [place] [address] [place] [address] Family Medicine, Physician [address] [place] [address] Social History Tobacco Use Types Packs/Day Years [...] on filedocumented in this encounter Care Teams Installation Drafter Relationship Specialty Start Date End Date Floresita Schmidt MD [address] [place] [address] PCP - General Pediatrics 10/10/18 03/15/22 documented as of this encounter
--- OUTSIDE RECORDS SUMMARY | 2024-06-26 10:15 | XMS_ITS | Encounter Summary ---
Author Organization [facility] Address [address] [place] [address] Phone Care Team Providers Care Animal Husbandry Professor Name Role Phone Floresita Schmidt MD Primary Care Provider [phone] Encounter Details Date Type Department Care Team (Late st Contact Info) Description 11/04/2016 Conversion Encounter [facility] - [address] [address] Social History Tobacco Use Types Packs/Day Years [...] on filedocumented in this encounter Care Teams Animal Husbandry Professor Relationship Specialty Start Date End Date Floresita Schmidt MD [address] [place] [address] [place] [address] PCP - General Pediatrics 10/10/18 03/15/22 documented as of this encounter
== END 2024-06-26 10:40 | disposition home or self-care (01) ==
LOC: HO.HMCH 09:16
DX: Z00.00 Encounter for general adult medical examination without abnormal findings (principal); F84.0 Autistic disorder; F20.9 Schizophrenia, unspecified; F41.9 Anxiety disorder, unspecified; H61.23 Impacted cerumen, bilateral

== ENCOUNTER → 2024-06-26 09:16 | Outpatient (BNVA) | payer OTHER, SELFPAY | DX: Z13.89 Encounter for screening for other disorder (principal) ==

== ENCOUNTER 2024-09-19 15:08 | Outpatient (AMB) | payer OTHER, SELFPAY ==
[2024-09-19 15:11] VITALS: BP 108/70; PULSE 74; TEMP 36.3; O2SAT 97; BMI 30.1
--- NOTE | 2024-09-19 15:11 | MHC.PC.OV ---
Vital Signs 09/19/24 15:11 Height 5 ft 3.78 in Weight 174 lb 2 oz BMI 30.1 BP 108/70 Blood Pressure Location Lt brachial Position Sitting Pulse 74 Pulse Source Pulse Oximeter Temp 97.4 F Temp Source Temporal Artery Scan Pulse Oximetry (%) 97 Oxygen Delivery Method Room Air Intake Visit Reasons: Vomiting Allergies No Known Allergies Allergy (Verified 09/19/24 15:47) Medication List - Last Reconciled 09/19/24 by CLAUDY Santos benztropine 0.5 mg PO DAILY buspirone mg PO TID carbamide peroxide 6.5% (Debrox) 5 drps otic (ears) Q12H 4 days cholecalciferol (vitamin D3) 50 mcg PO DAILY 30 days clonidine HCl mg PO hydroxyzine pamoate mg PO lithium carbonate mg PO melatonin 5 mg PO BEDTIME paliperidone palmitate (Invega Sustenna) mg IM trazodone 25 mg PO BEDTIME PRN Tobacco use date assessed: 09/19/24 Dental Screening Dental Screen Date: 09/19/24 Did you have a dental visit in the last 12 months?: Yes Did you have a dental problem in the last 6 months where you did not have access to dental care?: No Was dental information given to patient?: Patient has dentist HPI Vomiting HPI Details Reports that he has been vomiting since months ago, for once or twice. Reports that he is vomiting up bile appearing substances. Reports that he has stomach pain every now and then, but this does not last long. Denies nausea with vomiting, reports having a normal bm yesterday, and denies diarrhea or constipation. Reports that his stomach was burning yesterday. Reports that it was a major heartburn but this is not frequent. Reports that when it he eats, he does not vomit, it is mostly in the morning or sometime during the day. The denies smoking marijuana during visit. However, when the patient brother was updated on the visit, per patient request. The patient brother admits that the patient has been smoking more marijuana than he would like him to. Reports that the patient smokes anytime he gets the chance to. The patient denies alcohol usage. [facility] Medical History Anxiety Schizophrenia Autism Surgical History No pertinent past surgical history Family History Father Mental health problem Mother No problems noted. Father Bipolar 2 disorder HTN (hypertension) Social History Household Members: Family Both parents involved: No Housing: Condominium Alcohol intake: never Patient Tobacco Use Status: Never used Tobacco e-Cigarette/Vaping Use: Never Used Substance Use Type: Marijuana service: No Cognitive needs: Yes Hearing needs: No Vision needs: Yes Questionnaire PHQ-9 Over the last 2 weeks, how often have you been bothered by any of the following problems? 1. Little interest or pleasure in doing things: nearly every day 2. Feeling down, depressed, or hopeless: not at all 3. Trouble falling or staying asleep, or sleeping too much: nearly every day 4. Feeling tired or having little energy: nearly every day 5. Poor appetite or overeating: nearly every day 6. Feeling bad about yourself - or that you are a failure or have let yourself or your family down: not at all 7. Trouble concentrating on things, such as reading the newspaper or watching television: not at all 8. Moving or speaking so slowly that other people could have noticed. Or the opposite - being so fidgety or restless that you have been moving around a lot more than usual: not at all 9. Thoughts that you would be better off or of hurting yourself in some way: not at all Total score: 12 Depression Screening Interpretation: Positive Depression Screening Done: Yes Source: Developed by Drs. Roque Estrella, Mayi Moseley, Homer Barba and colleagues, with an educational maranda from [employer]. Thrive Questionnaire Date Thrive assessed: 09/19/24 I am a: Patient What is your living situation today?: I have a steady place to live Within the past 12 months, did the food you bought not last and you didn't have the money to get more?: I choose not to answer this question Within the past 12 months, did you worry whether your food would run out before you got money to buy more?: Never true Do you have trouble paying for medicines?: No Do you have trouble getting transportation to medical appointments?: No Do you have trouble paying your heating and electricity bill?: I choose not to answer this question Do you have trouble taking care of your child, family member or friend?: I choose not to answer this question Do you have trouble with day-to-day activities such as bathing, preparing meals, shopping, managing finances, etc.?: No Are you currently unemployed and looking for a job?: No Are you interested in more education?: No Please select the resources that you would like help with: None Currently or been in a relationship where the following occur: No concerns reported THRIVE Score: 0 AUDIT C Alcohol Use Questionnaire (AUDIT-C) 1. How often do you have a drink containing alcohol?: Never 3. How often do you have six or more drinks on one occasion?: Never Total Score: 0 MARIA TERESA-7 AMB Questionnaire MARIA TERESA-7 Date MARIA TERESA - 7 assessed: 06/26/24 Feeling nervous, anxious, or on edge: 0 = Not at all Not being able to stop or control worryin = Not at all Worrying too much about different things: 1 = Several days Trouble relaxin = More than half the days Being so restless that it is hard to sit still: 2 = More than half the days Becoming easily annoyed or irritable: 0 = Not at all Feeling afraid as if something awful might happen: 0 = Not at all Total MARIA TERESA-7 score (0-4 normal; 5-9 mild; 10-14 moderate; 15-21 severe): 5 Source: Developed by Drs. Roque Estrella, Mayi Moseley, Homer Barba and colleagues, with an educational maranda from [employer]. Review of Systems Const Denies headache(s) Eyes Denies loss of vision ENT Denies dizziness, Denies headache(s) and Denies sore throat Card Denies chest pain, Denies leg edema and Denies lightheadedness Resp Denies cough, Denies hemoptysis and Denies wheezing GI Denies abdominal pain, Denies melena, Denies constipation, Reports heartburn (reports intermittent ), Denies diarrhea, Denies nausea and Reports vomiting (vomiting up bile appearing substance-mostly in the mornings) Denies dysuria, Denies urinary frequency and Denies urinary urgency Neuro Denies Abnormal speech present, Denies dizziness, Denies headache(s) and Denies loss of vision Aller/Immun Denies wheezing Physical exam (Primary Care) Vital Signs: Last Vital Signs Temp 97.4 F 09/19/24 15:11 Pulse 74 09/19/24 15:11 BP 108/70 09/19/24 15:11 Pulse Ox 97 09/19/24 15:11 Oxygen Delivery Method Room Air 09/19/24 15:11 BMI result Body Mass Index 30.1 Tobacco/Smoking Status: Tobacco use Status Tobacco use date assessed 09/19/24 09/19/24 15:19 Patient Tobacco Use Status Never used Tobacco 09/19/24 15:19 e-Cigarette/Vaping Use Never Used 09/19/24 15:19 PHQ-9: PHQ-9 Score PHQ-9: Total score 12 09/19/24 15:55 Depression Screening Interpretation: Positive Thrive Assessment: Date of Thrive Assessment Date Thrive assessed 09/19/24 09/19/24 15:19 Currently or been in a relationship where the following occur: No concerns reported Const General: healthy appearing, no acute distress, alert and awake Nutritional Appearance: well nourished Orientation/consciousness: oriented to person, oriented to place and oriented to time HENMT Ears: TM's normal bilaterally General nose exam: Normal nasal mucous membranes and turbinates present Eyes Conjunctivae: conjunctivae normal Sclerae: sclerae normal Pupils: Equal, round and reactive pupils present Neck Neck: Yes no lymphadenopathy and Yes no JVD Thyroid: Thyroid normal Carotids: no bruits Resp Effort & Inspection: normal respiratory effort and not tachypneic Auscultation: no crackles, no rales, no rhonchi and no wheezes Cardio Rate: regular rate Rhythm: regular rhythm Heart sounds: no murmurs and normal S1 and S2 GI Palpation (GI): Soft to palpation, nontender, no hepatomegaly and no splenomegaly Auscultation: normal bowel sounds Skin General skin exam: no rashes or lesions noted and dry skin Neuro General: oriented to person, oriented to place and oriented to time Cranial nerves: Yes Equal, round and reactive pupils present Speech: No Abnormal speech present Gait exam (Neuro): Normal gait present Motor exam (neuro): no tremor noted Psych Mental Status: mental status grossly normal Speech and movement: Normal speech and movement present Affect: normal affect Attitude: cooperative Thought process: Normal thought process present Coding Level of Care Code Est Pt Level 3 (23749) Diagnoses Bilious vomiting without nausea R11.14 Nausea presence: without nausea Time Spent (min) 33 Assessment & Plan Assessment & Plan (1) Vomiting bile: Code(s): R11.14 - Bilious vomiting Category: Medical Qualifiers: Nausea presence: without nausea Qualified Code(s): R11.14 - Bilious vomiting Plan: The patient abdomen is soft non-tender. Reports that he does not typically vomit after eating. This happens more often in the mornings before having anything to eat or drink. The patient is autistic/schizophrenic, unsure if this has a psychogenic component, or related to the patient marijuana usage. He does reports intermittent heartburn, but it does not seems to bothersome. Will try the patient on omeprazole 20mg bid. Labs ordered to further evaluate the patient's GI system. Called the patient uncle and updated him on the plan. The patient to contact office if this worsens or continues Orders: Orders Comprehensive Met. Panel 09/19/24 R11.14 - Bilious vomiting Amylase 09/19/24 R11.14 - Bilious vomiting Complete Blood Count Auto Diff 09/19/24 R11.14 - Bilious vomiting Erythrocyte Sedimentation Rate 09/19/24 R11.14 - Bilious vomiting CRP High Sensitivity 09/19/24 R11.14 - Bilious vomiting Lipase 09/19/24 R11.14 - Bilious vomiting Medications: New omeprazole 20 mg PO BID 60 caps 2RF
--- OUTSIDE RECORDS SUMMARY | 2024-09-19 15:28 | XMS_ITS | Clinical Summary ---
Author Organization [facility] Address [address] [place] [phone] Phone Care Team Providers Care Recordist Name Role Phone Unavailable Primary Care Provider [...] 86 12/13/2019 10:45 AM EDT Temperature 36.8 C (98.3 F) 12/13/2019 10:45 AM EDT Respiratory Rate - - Oxygen Saturation 98% [...] Trum enba SCDM 2-dose series) 06/11/2020 12/13/2019 COVID-19 Vaccine (1 - 2023-2 5 season) 2023 Influenza Vaccines (#1) 2024 01/22/20, 12/31/2019, 02/09/2012, Additional history exists DTaP,Tdap,and Td Vaccines (7 - Td or [...] A Vaccines Completed 12/13/2019, 10/11/19 19 Insurance [facility] MEDICAID [place] [id number] * Guarantor: BE[employer] Account Type Relation to Patient Date of Phone Billing Address [facility] [address] [place] [address]
--- OUTSIDE RECORDS SUMMARY | 2024-09-19 15:28 | XMS_ITS | Encounter Summary ---
Author Organization [facility] Address [address] [place] [address] Care Team Providers Care Billing Spec Name Role Phone Oly Meza MD Primary Care Provider Unavailab Anders Kim DO Primary Care Provider Unavaila ble Reason for Visit * Reason Comments E-prescribe Rx Request Encounter Details Date Type Department Care Team Description 12/15/2020 Refill Pediatrics - [place] [address] [place] [address] Oly Meza MD E-prescribe Rx Request Social History Tobacco Use Types Packs/Day Years Used Date Smoking Tobacco: Never Smokeless Tobacco: Never Alcohol Use Standard Drinks/Week Comments No 0 (1 standard drink = 0.6 oz pur e alcohol) Sex Assigned at Date Recorded Not on file Job Start Date Occupation Industry Not on file Not on file Not on file documented as of this encounter Miscellaneous Notes * Telephone Encounter - Meghan Jennings - 12/16/2020 9:29 AM EDT When was patients last PE/WCC? 09/04/2020 Last seen for adhd 08/29/2017 Last physical When is patients next PE/WCC scheduled? 02/06/2021 physical Oly Meza RX REQUEST WHEN MED IS ON THE LIST: All of the medications requested were on the CURRENT MEDS list Did you check the Pharmacy information above?: YES Indicate how soon the patient needs the script: BY THE END OF THE DAY Patient would like script to be: E-PRESCRIBED/FAXED TO PHARMACY Is the doctor here today?: YES Can the message wait until the doctor returns?: n/a Has the patient been told that the prescription will not be filled until the end of the day? YES Oly Meza Payor: [employer] FFS / Plan: [employer] / Product Type: MEDICAID RISK documented in this encounter Plan of Treatment Not on file documented as of this encounter Visit Diagnoses Not on filedocumented in this encounter Care Teams Billing Spec Relationship Specialty Start Date End Date Oly Meza MD PCP - General Pediatrics 08/28/20 02/24/22 Anders Knott DO PCP - General Internal Medicine 02/25/22 documented as of this encounter
== END 2024-09-19 16:09 | disposition home or self-care (01) ==
LOC: HO.HMCH 15:09
DX: R11.14 Bilious vomiting (principal)

== ENCOUNTER → 2024-09-19 15:08 | Outpatient (BNVA) | payer OTHER, SELFPAY | DX: R11.14 Bilious vomiting (principal) | CPT/HCPCS: 96127; 99212 ==